=== PATIENT | male | born 1950 | race Caucasian/White ===

== ENCOUNTER → 2016-10-24 | Outpatient (CLI) | payer MEDICARE, BC ==
[~2016-10-24] MED LIST: ASPI325T PO; CITA20TA9 PO; CLOP75TA PO; HUM10VIA3 SQ; IBUP200C62 PO; LISI-625 PO; METF500T4 PO; METO-482 PO; NITR0.4T39 SL; SIMV80TA5 PO
[2016-10-24 11:54] LABS: ANION GAP 9 MEQ/L (5-15); BUN/CREATININE RATIO 27 RATIO (6-26); CALCIUM 9.3 MG/DL (8.4-10.2); CHLORIDE 102 MEQ/L (98-107); CO2 - CARBON DIOXIDE 29 MEQ/L (22-30); CREATININE 0.9 MG/DL (0.8-1.5); GLOMERULAR FILTRATION RATE 84; GLUCOSE 151 MG/DL (75-110); POTASSIUM 4.9 MEQ/L (3.6-5); SODIUM 140 MEQ/L (134-144)
[2016-10-24 11:56] LABS: HEMOGLOBIN A1C 6.2 % (6.1-7.9)
== END ==
LOC: LAB 11:10
PROVIDERS: ATTEND Family Medicine
DX: E10.9 Type 1 diabetes mellitus without complications (principal); E87.5 Hyperkalemia
CPT/HCPCS: 36415; 80048; 83036; 93005